=== PATIENT | female | born 1985 | race American Indian/Alaskan Native ===

== ENCOUNTER 2016-06-10 17:35 | Emergency (ER) | payer SELFPAY ==
[2016-06-10 18:11] LABS: Basophils % (Auto) 0.7 % (0.0-1.8); Eosinophils % (Auto) 3.4 % (0.0-4.3); Hematocrit 36.5 % (30.3-42.9); Hemoglobin 12.2 gm/dl (10.1-14.3); Mean Corpuscular HGB Conc 33 % (30-34); Mean Corpuscular Hemoglobin 32 pg (28-32); Mean Corpuscular Volume 96 fl (79-97); Platelet Count 173 K/mm3 (140-440); Red Blood Count 3.82 M/mm3 (3.65-5.03); Red Cell Distribution Width 14.5 % (13.2-15.2); White Blood Count 6.7 K/mm3 (4.5-11.0)
[2016-06-10 18:29] LABS: Bilirubin,Urine NEG (Negative); Blood,Urine NEG (Negative); Ketones,Urine NEG (Negative); Leukocyte Esterase,Urine NEG (Negative); Nitrite,Urine NEG (Negative); Protein,Urine <15 mg/dL mg/dL (Negative); Urobilinogen,Urine < 2.0 mg/dL (<2.0); WBC,Urine < 1.0 /HPF (0.0-6.0)
[2016-06-10 18:32] LABS: Alanine Aminotransferase 11 units/L (7-56); Albumin 4.1 g/dL (3.9-5); Albumin/Globulin Ratio 1.3 %; Alkaline Phosphatase 60 units/L (35-129); Anion Gap 16 mmol/L; BUN/Creatinine Ratio 13.33; Bilirubin,Total 0.3 mg/dL (0.1-1.2); Blood Urea Nitrogen 12 mg/dL (7-17); Carbon Dioxide 25 mmol/L (22-30); Chloride 98.4 mmol/L (98-107); Glucose 92 mg/dL (65-100); Lipase 20 units/L (13-60); Potassium 4.4 mmol/L (3.6-5.0); Sodium 135 mmol/L (137-145); Total Protein 7.2 g/dL (6.3-8.2)
--- NOTE | 2016-06-10 21:56 | Emergency Department Report ---
ED Abdominal Pain HPI - General Chief Complaint: Back Pain/Injury Stated Complaint: LOWER BACK PAIN Time Seen by Provider: 06/10/16 21:55 Source: patient Mode of arrival: Ambulatory Limitations: No Limitations - History of Present Illness Initial Comments: She is a 30-year-old female with no past medical history presenting with lower back pain greater than one month. Patient reports 4 weeks ago she noticed increasing soreness in the lower back. Patient describes the pain as intermittent, dull, ache. Associated right lower quadrant pain at times. Currently patient denies any abdominal pain. Patient denies any inciting injury. Otherwise no fevers, chills, nausea, vomiting, chest pain, shortness of breath, trauma, travel, sick contacts, difficulty with gait, urinary or bowel incontinence. MD Complaint: abdominal pain, other (back pain) - Related Data Previous Rx's Medication Instructions Recorded Last Taken Type Naproxen [Naprosyn] 500 mg PO BID PRN #14 tablet 06/10/16 Unknown Rx Allergies Allergy/AdvReac Type Severity Reaction Status Date / Time No Known Allergies Allergy Unverified 11/26/12 18:11 ED Review of Systems ROS: Stated complaint: LOWER BACK PAIN Other details as noted in HPI Comment: All other systems reviewed and negative ED Past Medical Hx - Past Medical History Previous Medical History?: No - Surgical History Past Surgical History?: Yes Additional Surgical History: 2002 - Social History Smoking Status: Former Smoker Substance Use Type: None - Medications Home Medications: Home Medications Medication Instructions Recorded Confirmed Last Taken Type Naproxen [Naprosyn] 500 mg PO BID PRN #14 tablet 06/10/16 Unknown Rx ED Physical Exam - General Limitations: No Limitations General appearance: alert, in no apparent distress - Head Head exam: Present: atraumatic, normocephalic - Eye Eye exam: Present: normal appearance - ENT ENT exam: Present: mucous membranes moist - Neck Neck exam: Present: normal inspection - Respiratory Respiratory exam: Present: normal lung sounds bilaterally. Absent: respiratory distress - Cardiovascular Cardiovascular Exam: Present: regular rate, normal rhythm. Absent: systolic murmur, diastolic murmur, rubs, gallop - GI/Abdominal GI/Abdominal exam: Present: soft, normal bowel sounds - Extremities Exam Extremities exam: Present: normal inspection - Back Exam Back exam: Present: normal inspection, full ROM. Absent: tenderness, CVA tenderness (R), muscle spasm, paraspinal tenderness, vertebral tenderness - Neurological Exam Neurological exam: Present: alert, oriented X3, CN II-XII intact, normal gait. Absent: motor sensory deficit - Psychiatric Psychiatric exam: Present: normal affect, normal mood - Skin Skin exam: Present: warm, dry, intact, normal color. Absent: rash ED Course Vital Signs 06/10/16 06/10/16 06/10/16 17:54 22:12 22:13 Temperature 98.8 F 98 F Pulse Rate 87 80 Respiratory 18 18 Rate Blood Pressure 113/76 Blood Pressure 108/60 [Left] O2 Sat by Pulse 100 98 100 Oximetry ED Medical Decision Making - Lab Data Result diagrams: 06/10/16 18:02 06/10/16 18:02 Critical care attestation.: If time is entered above; I have spent that time in minutes in the direct care of this critically ill patient, excluding procedure time. ED Disposition Clinical Impression: Back pain, Abdominal pain Disposition: DISCHARGED TO HOME OR SELFCARE Is pt being admited?: No Condition: Stable Instructions: Abdominal Pain (ED), Low Back Strain (ED) Prescriptions: Naproxen [Naprosyn] 500 mg PO BID PRN #14 tablet PRN Reason: Pain Referrals: PRIMARY CARE, [Primary Care Provider] - 3-5 Days
[2016-06-10 22:34] VITALS: BP 127/88
== END 2016-06-10 22:34 | disposition home or self-care (01) ==
LOC: ED 17:35
DX: M54.5 Low back pain (principal); R10.9 Unspecified abdominal pain
CPT/HCPCS: 36415; 80053; 81001; 81025; 83690; 85025; 99283

== ENCOUNTER 2017-07-03 02:03 | Emergency (ER) | payer OTHER ==
[2017-07-03 02:22] VITALS: BP 110/75
--- NOTE | 2017-07-03 03:19 | XRay Report ---
FINAL REPORT PROCEDURE: XR TIBIA FIBULA 2V RT TECHNIQUE: RIGHT tibia and fibula radiographs, AP and lateral views. CPT 20981 HISTORY: S/P fall R/O glass in wounds COMPARISON: No prior studies are available for comparison. FINDINGS: Fracture (s) and/or Dislocation(s): None . Joint space(s): Normal . Soft tissues: Normal . Bone mineralization: Normal . Foreign bodies: None . IMPRESSION: Normal Examination.
--- NOTE | 2017-07-03 03:19 | XRay Report ---
FINAL REPORT PROCEDURE: XR FINGER(S) 2+V RT TECHNIQUE: RIGHT hand radiographs, AP, lateral, and oblique views. CPT 14288-RE HISTORY: s/p fall r/o glass in finger COMPARISON: No prior studies are available for comparison. FINDINGS: Fracture (s) and/or Dislocation(s): None . Alignment: Normal . Joint space(s): Normal . Soft tissues: Normal . Bone mineralization: Normal . Foreign bodies: None . IMPRESSION: Normal Examination .
[2017-07-03] MEDS ORDERED: NACL 0.9% 500 ML IR ONE (03:25)
[2017-07-03] MEDS ORDERED: NACL 0.9% IR ONE (03:37)
--- NOTE | 2017-07-03 04:07 | Emergency Department Report ---
- General Chief Complaint: Laceration/Recheck/Suture Stated Complaint: RIGHT LEG LACERATION Time Seen by Provider: 07/03/17 03:13 Source: patient Mode of arrival: Ambulatory Limitations: No Limitations - History of Present Illness Initial Comments: 31-year-old -[place] female comes in status post fall in the shower glass broken. Patient reports multiple cuts to her right lower extremity and right pinkie. Patient reports that she is up-to-date in her tetanus has no past medical history currently takes vitamins for prophylactic possibility of trying to get . No known drug allergies. She is here with her mother and her sister. -: During the night Extremity Location: Right: Lower Leg, Ankle Place: home Patient Tetanus UTD: Yes Context: accidental Associated Symptoms: none - Related Data Previous Rx's Medication Instructions Recorded Last Taken Type Naproxen [Naprosyn TAB] 500 mg PO BID PRN #14 tablet 07/03/17 Unknown Rx Sulfamethoxazole/Trimethoprim 1 each PO BID #20 tablet 07/03/17 Unknown Rx [Bactrim Ds Tablet] Allergies Allergy/AdvReac Type Severity Reaction Status Date / Time No Known Allergies Allergy Unverified 11/26/12 18:11 ED Review of Systems ROS: Stated complaint: RIGHT LEG LACERATION Other details as noted in HPI Comment: All other systems reviewed and negative Genitourinary: denies: urgency, dysuria, discharge Musculoskeletal: denies: back pain, joint swelling, arthralgia Skin: other (multiple abrasion laceration on right finger and her right ankle) Neurological: denies: headache, weakness, paresthesias Psychiatric: denies: anxiety, depression Hematological/Lymphatic: denies: easy bleeding, easy bruising ED Past Medical Hx - Past Medical History Previous Medical History?: No - Surgical History Past Surgical History?: Yes Additional Surgical History: 2002 - Social History Smoking Status: Current Every Day Smoker Substance Use Type: Alcohol - Medications Home Medications: Home Medications Medication Instructions Recorded Confirmed Last Taken Type Naproxen [Naprosyn TAB] 500 mg PO BID PRN #14 tablet 07/03/17 Unknown Rx Sulfamethoxazole/Trimethoprim 1 each PO BID #20 tablet 07/03/17 Unknown Rx [Bactrim Ds Tablet] ED Physical Exam - General Limitations: No Limitations General appearance: alert, in no apparent distress - Head Head exam: Present: atraumatic, normocephalic - Eye Eye exam: Present: normal appearance - ENT ENT exam: Present: mucous membranes moist - Cardiovascular Cardiovascular Exam: Present: regular rate - Neurological Exam Neurological exam: Present: alert, oriented X3 - Psychiatric Psychiatric exam: Present: normal affect, normal mood - Skin Skin exam: Present: abrasion (multiple foreign right leg and lower leg,), other (2 cm laceration to the right lateral malleolus that is jagged with a flap, 1 cm laceration to the right PIP of the fifth digit) ED Course Vital Signs 07/03/17 02:04 Temperature 98.5 F Pulse Rate 100 H Respiratory 20 Rate Blood Pressure 110/75 O2 Sat by Pulse 97 Oximetry - Laceration /Wound Repair Right Finger Wound Location: upper extremity (1 cm laceration to the fifth DIP right hand), lower extremity (2 cm laceration with a flap and irregular to the right lateral malleolus) Wound's Depth, Shape: superficial Wound Explored: clean Irrigated w/ Saline (ccs): 500 Betadine Prep?: Yes (500 mL but soak, finger soak 50 mL with Betadine) Anesthesia: 1% Lidocaine Volume Anesthetic (ccs): 5 (for both lacerations) Wound Debrided: moderate Wound Repaired With: sutures Suture Size/Type: 5:0, proline Number of Sutures: 6 (4 to the right fifth digit due to the right malleolus ankle) Layer Closure?: No Sterile Dressing Applied?: Yes Progress: Patient tolerated procedure well ED Medical Decision Making - Radiology Data Radiology results: report reviewed, image reviewed FINDINGS: Fracture (s) and/or Dislocation(s): None . Alignment: Normal . Joint space(s): Normal . Soft tissues: Normal . Bone mineralization: Normal . Foreign bodies: None . IMPRESSION: Normal Examination . Transcribed By: [facility] Dictated By: MARIA FERNANDA HUERTA MD Electronically Authenticated By: MARIA FERNANDA HUERTA MD Signed Date/Time: 07/03/17313 DD/ 3 TD/TT: 07/03/17313 FINAL REPORT PROCEDURE: XR TIBIA FIBULA 2V RT TECHNIQUE: RIGHT tibia and fibula radiographs, AP and lateral views. CPT 17174 HISTORY: S/P fall R/O glass in wounds COMPARISON: No prior studies are available for comparison. FINDINGS: Fracture (s) and/or Dislocation(s): None . Joint space(s): Normal . Soft tissues: Normal . Bone mineralization: Normal . Foreign bodies: None . IMPRESSION: Normal Examination. Transcribed By: [facility] Dictated By: MARIA FERNANDA HUERTA MD Electronically Authenticated By: MARIA FERNANDA HUERTA MD Signed Date/Time: 07/03/17312 DD/ 2 TD/TT: 07/03/17312 - Medical Decision Making Patient has been evaluated by this provider fast track. Patient had right finger sutured and right ankle sutured. Discussed the patient she needs to return back to the emergency room in 7-10 days for suture removal. Discussed with patient to continue with the antibiotics that I have prescribed and pain medication as prescribed. She is to return sooner if there is any signs of infection such as purulent discharge swelling redness. Please change her dressings daily. He area clean and dry. Critical care attestation.: If time is entered above; I have spent that time in minutes in the direct care of this critically ill patient, excluding procedure time. ED Disposition Clinical Impression: Laceration of right ankle Qualifiers: Encounter type: initial encounter Qualified Code(s): S91.011A - Laceration without foreign body, right ankle, initial encounter Laceration of right little finger Qualifiers: Encounter type: initial encounter Damage to nail status: without damage Foreign body presence: without foreign body Qualified Code(s): S61.216A - Laceration without foreign body of right little finger without damage to nail, initial encounter Abrasion of multiple sites of right lower extremity Qualifiers: Encounter type: initial encounter Qualified Code(s): S80.811A - Abrasion, right lower leg, initial encounter Disposition: - TO HOME OR SELFCARE Is pt being admited?: No Does the pt Need Aspirin: No Condition: Stable Instructions: Suture Care (ED), Laceration (ED), Skin Adhesive Care (ED) Additional Instructions: Please keep sutures clean and dry. Please complete antibiotics as prescribed. Please follow up for suture removal in 7-10 days. You can take naproxen for pain. Prescriptions: Naproxen [Naprosyn TAB] 500 mg PO BID PRN #14 tablet PRN Reason: Pain Sulfamethoxazole/Trimethoprim [Bactrim Ds Tablet] 1 each PO BID #20 tablet Referrals: EARLENE PRATER MD [Primary Care Provider] - 3-5 Days Forms: Work/School Release Form(ED), Accompanied Note
== END 2017-07-03 05:19 | disposition home or self-care (01) ==
LOC: ED 02:03
DX: S61.216A Laceration without foreign body of right little finger without damage to nail, initial encounter (principal); S91.011A Laceration without foreign body, right ankle, initial encounter; F17.200 Nicotine dependence, unspecified, uncomplicated; W25.XXXA Contact with sharp glass, initial encounter; Y93.89 Activity, other specified; Y99.8 Other external cause status; Y92.009 Unspecified place in unspecified non-institutional (private) residence as the place of occurrence of the external cause

== ENCOUNTER 2017-07-06 08:28 | Emergency (ER) | payer OTHER ==
[2017-07-06] MEDS ORDERED: MOTRIN PO ONE (12:10)
--- NOTE | 2017-07-06 12:53 | Emergency Department Report ---
ED Lower Extremity HPI - General Chief Complaint: Extremity Injury, Lower Stated Complaint: FOOT PAIN Time Seen by Provider: 07/06/17 12:07 Source: patient Mode of arrival: Ambulatory Limitations: No Limitations - History of Present Illness Initial Comments: This is a 32-year-old female nontoxic, well nourished in appearance, no acute signs of distress presents to the ED with c/o of right ankle and foot pain. Patient stated she was seen by a provider by 3 days ago and received multiple sutures to the area. Patient stated she started to take Bactrim but only has taken 2 pills of it and stopped. Patient stated swelling increased and pain. Patient denies any pus, drainage, fever, chills, headache, nausea, vomiting, chest pain, shortness of breathe, back pain, numbness or tingling. Patient denies any new trauma. Patient denies any allergies or PMH. MD Complaint: ankle injury, foot injury -: days(s) (3) Injury: Ankle: Left, Foot: Left Place: home Severity: mild Severity scale (0 -10): 8 Improves With: immobilization Worsens With: movement, palpation Associated Symptoms: swelling, able to partially bear weight, ambulatory. denies: snap/pop sensation, numbness, tingling, unable to bear weight - Related Data Previous Rx's Medication Instructions Recorded Last Taken Type Naproxen [Naprosyn TAB] 500 mg PO BID PRN #14 tablet 07/03/17 Unknown Rx Sulfamethoxazole/Trimethoprim 1 each PO BID #20 tablet 07/03/17 Unknown Rx [Bactrim Ds Tablet] Clindamycin [Clindamycin CAP] 300 mg PO Q8H 7 Days cap 07/06/17 Unknown Rx Ibuprofen [Motrin] 600 mg PO Q8H PRN #30 tablet 07/06/17 Unknown Rx Allergies Allergy/AdvReac Type Severity Reaction Status Date / Time No Known Allergies Allergy Unverified 11/26/12 18:11 ED Review of Systems ROS: Stated complaint: FOOT PAIN Other details as noted in HPI Constitutional: denies: chills, fever Eyes: denies: eye pain, eye discharge, vision change ENT: denies: ear pain, throat pain Respiratory: denies: cough, shortness of breath, wheezing Cardiovascular: denies: chest pain, palpitations Endocrine: no symptoms reported Gastrointestinal: denies: abdominal pain, nausea, diarrhea Genitourinary: denies: urgency, dysuria, discharge Musculoskeletal: joint swelling, arthralgia. denies: back pain Skin: denies: rash, lesions Neurological: denies: headache, weakness, paresthesias Psychiatric: denies: anxiety, depression Hematological/Lymphatic: denies: easy bleeding, easy bruising ED Past Medical Hx - Past Medical History Previous Medical History?: Yes Additional medical history: THYROID PROBLEMS AND NON COMPLIANT WITH THYROID MEDS - Surgical History Past Surgical History?: Yes Additional Surgical History: 2002 - Social History Smoking Status: Current Every Day Smoker Substance Use Type: Alcohol, Prescribed - Medications Home Medications: Home Medications Medication Instructions Recorded Confirmed Last Taken Type Naproxen [Naprosyn TAB] 500 mg PO BID PRN #14 tablet 07/03/17 Unknown Rx Sulfamethoxazole/Trimethoprim 1 each PO BID #20 tablet 07/03/17 Unknown Rx [Bactrim Ds Tablet] Clindamycin [Clindamycin CAP] 300 mg PO Q8H 7 Days cap 07/06/17 Unknown Rx Ibuprofen [Motrin] 600 mg PO Q8H PRN #30 tablet 07/06/17 Unknown Rx ED Physical Exam - General Limitations: No Limitations General appearance: alert, in no apparent distress - Head Head exam: Present: atraumatic, normocephalic - Eye Eye exam: Present: normal appearance Pupils: Present: normal accommodation - ENT ENT exam: Present: normal exam, mucous membranes moist - Neck Neck exam: Present: normal inspection, full ROM. Absent: tenderness, meningismus, lymphadenopathy - Respiratory Respiratory exam: Present: normal lung sounds bilaterally. Absent: respiratory distress, wheezes, rales, rhonchi, stridor, chest wall tenderness, accessory muscle use, decreased breath sounds, prolonged expiratory - Cardiovascular Cardiovascular Exam: Present: regular rate, normal rhythm, normal heart sounds. Absent: bradycardia, tachycardia, irregular rhythm, systolic murmur, diastolic murmur, rubs, gallop - GI/Abdominal GI/Abdominal exam: Present: soft, normal bowel sounds. Absent: distended, tenderness, guarding, rebound, rigid, diminished bowel sounds - Rectal Rectal exam: Present: deferred - Extremities Exam Extremities exam: Present: normal inspection, full ROM, tenderness, normal capillary refill, pedal edema. Absent: joint swelling, calf tenderness - Expanded Lower Extremity Exam Right Hip exam: Present: normal inspection, full ROM Upper Leg exam: Present: normal inspection, full ROM Knee exam: Present: normal inspection, full ROM Lower Leg exam: Present: normal inspection, full ROM Ankle exam: Present: normal inspection, full ROM, tenderness, swelling. Absent : abrasion, laceration, ecchymosis, deformity, crepidus, dislocation, erythema, anterior draw sign Foot/Toe exam: Present: normal inspection, full ROM, tenderness, swelling. Absent: abrasion, laceration, ecchymosis, deformity, crepidus, dislocation, erythema, amputation, puncture wound, foreign body, calcaneal tenderness, tenderness at base of 5th metatarsal, nail avulsion, subungual hematoma Neuro vascular tendon exam: Present: no vascular compromise. Absent: pulse deficit, abnormal cap refill, motor deficit, sensory deficit, tendon deficit, extremity cold to touch, pallor, abnormal 2-point discrimination, decreased fine /light touch, foot drop, peroneal nerve deficit, significant pain with passive ROM of distal joint Gait: Positive: observed and limited by pain - Back Exam Back exam: Present: normal inspection, full ROM. Absent: tenderness, CVA tenderness (R), CVA tenderness (L), muscle spasm, paraspinal tenderness, vertebral tenderness, rash noted - Neurological Exam Neurological exam: Present: alert, oriented X3, normal gait - Psychiatric Psychiatric exam: Present: normal affect, normal mood - Skin Skin exam: Present: warm, dry, intact, normal color. Absent: rash ED Course Vital Signs 07/06/17 07/06/17 08:57 12:20 Temperature 98.4 F Pulse Rate 85 Respiratory 20 16 Rate Blood Pressure 120/76 O2 Sat by Pulse 99 Oximetry - Reevaluation(s) Reevaluation #1: 07/06/17 12:56 Patient is speaking in full sentences with no signs of distress noted. ED Lower Extremity MDM - Medical Decision Making This is a 32-year-old male that presents with arthralgia to right foot/ankle. Patient is stable and was examined by me. X-ray has been obtained and dictated by the radiologist. Patient is notified of the x-ray report with noted by the patient. Patient does have normal gait with slight tenderness to the lac site and no joint swelling. No ecchymosis. no joint redness or swelling. Not warm to touch. No signs of cellulites present. Patient was instructed to RICE therapy. Patient received Motrin for pain. Patient is discharged with Clindamycine and Motrin. She was instructed to discontinue bactrim and to take clindamycine instead. At time of discharge, the patient does not seem toxic or ill in appearance. No acute signs of distress noted. Patient agrees to discharge treatment plan of care. No further questions noted by the patient. Critical care attestation.: If time is entered above; I have spent that time in minutes in the direct care of this critically ill patient, excluding procedure time. ED Disposition Clinical Impression: Arthralgia Qualifiers: Joint pain location: ankle Laterality: right Qualified Code(s): M25.571 - Pain in right ankle and joints of right foot Disposition: - TO HOME OR SELFCARE Is pt being admited?: No Does the pt Need Aspirin: No Condition: Stable Instructions: Clindamycin (By mouth), Ibuprofen (By mouth), RICE Therapy (ED) Additional Instructions: Follow-up with a primary care doctor in 3-5 days or if symptoms worsen and continue return to emergency room as soon as possible. Prescriptions: Clindamycin [Clindamycin CAP] 300 mg PO Q8H 7 Days cap Ibuprofen [Motrin] 600 mg PO Q8H PRN #30 tablet PRN Reason: Pain Referrals: PRIMARY CAREMD [Primary Care Provider] - 3-5 Days NIKOLAS TAYLOR MD [Staff Physician] - 3-5 Days [facility] [Outside] - 3-5 Days [facility] [Outside] - 3-5 Days ALAYNA HAMMOND MD [Staff Physician] - 3-5 Days
--- NOTE | 2017-07-06 13:50 | XRay Report ---
Right ankle 3 views: History: Ankle and foot pain. Findings: Soft tissue swelling lateral malleolus. No fracture or dislocation. Small spur posterior inferior calcaneum. Impression: Soft tissue swelling. No evidence of acute fracture.
--- NOTE | 2017-07-06 13:51 | XRay Report ---
Right foot 3 views: History: Foot and ankle pain. Findings: No bony or articular abnormality. No fracture dislocation or periosteal reaction. Impression: No evidence of acute fracture.
[2017-07-06 14:11] VITALS: BP 122/76
== END 2017-07-06 14:11 | disposition home or self-care (01) ==
LOC: ED 08:28
DX: M25.571 Pain in right ankle and joints of right foot (principal); F17.200 Nicotine dependence, unspecified, uncomplicated